=== PATIENT | male | born 1990 | race Caucasian/White ===

== ENCOUNTER 2018-12-05 18:57 | Day surgery (SDC) | payer OTHER ==
--- NOTE | 2018-12-05 19:50 | XRAY Report ---
Reason: swelling Procedure Date: 12/05/2018 Accession Number: [id number] / [id number] Procedure: XR - Finger(s) RT CPT Code: FULL RESULT: EXAM: RIGHT FIRST DIGIT RADIOGRAPHY EXAM DATE: 12/05/2018 07:32 PM. CLINICAL HISTORY: Swelling. COMPARISON: None. TECHNIQUE: 3 views. FINDINGS: Bones: Normal. No fracture or bone lesion. Joints: Normal. No subluxations. Soft Tissues: Mild soft tissue swelling. IMPRESSION: Soft tissue swelling. RADIA
[2018-12-05] MEDS ORDERED: ceFAZolin 2 GM/50 ML 2 GM/50 ML BAG IV STA (20:19)
[2018-12-05] MEDS ORDERED: cefTRIAXone 1 GM VIAL IVP STA (20:20)
[2018-12-05] MEDS ORDERED: VANCOMYCIN INJ 1 GM in SODIUM CHLORIDE 0.9% 500 ML IV STA (20:20)
[2018-12-05 20:48] LABS: BASOPHILS % (AUTO) 0.4 %; EOSINOPHILS # (AUTO) 0.5 10^3/uL (0.0-0.7); EOSINOPHILS % (AUTO) 4.6 %; HGB - HEMOGLOBIN 15.3 g/dL (14.0-18.0); LYMPHOCYTES # (AUTO) 2.8 10^3/uL (1.5-3.5); LYMPHOCYTES % (AUTO) 25.7 %; MEAN CORPUSCULAR HEMOGLOBIN 29.3 pg (27.0-31.0); MEAN CORPUSCULAR VOLUME 83.6 fL (80.0-94.0); MEAN PLATELET VOLUME 7.4 fL (7.4-11.4); MONOCYTES # (AUTO) 0.7 10^3/uL (0.0-1.0); MONOCYTES % (AUTO) 6.6 %; NEUTROPHILS # (AUTO) 6.8 10^3/uL (1.5-6.6); NEUTROPHILS % (AUTO) 62.7 %; PLT - PLATELET COUNT 255 10^3/uL (130-450); RED BLOOD COUNT 5.23 10^6/uL (4.70-6.10); RED CELL DISTRIBUTION WIDTH 13.6 % (12.0-15.0); WHITE BLOOD COUNT 10.8 x10^3/uL (4.8-10.8)
[2018-12-05 20:53] LABS: CALCIUM 9.2 mg/dL (8.5-10.3); CREATININE 0.9 mg/dL (0.6-1.2)
--- NOTE | 2018-12-05 20:59 | ED Physician Documentation ---
History of Present Illness - Stated complaint Stated Complaint: R THUMB INJURY - Chief complaint Chief Complaint: Wound - History obtained from History obtained from: Patient - History of Present Illness Timing: How many days ago (several) Pain level max: 5 Pain level now: 5 Improved by: nothing Worsened by: palpation - Additonal information Additional information: R thumb swelling. no injury noted. Td UTD. Works as a electrician aircraft. Does not recall any specific injury. Review of Systems Constitutional: denies: Fever, Chills Ears: denies: Ear pain Nose: denies: Rhinorrhea / runny nose Throat: denies: Sore throat GI: denies: Vomiting Skin: denies: Rash Musculoskeletal: denies: Neck pain, Back pain PD PAST MEDICAL HISTORY - Past Medical History Past Medical History: Yes Psych: Anxiety Musculoskeletal: Other - Past Surgical History Past Surgical History: Yes General: Other - Present Medications Home Medications: Ambulatory Orders Medication Instructions Recorded Confirmed No Known Home Medications 05/12/16 05/12/16 - Allergies Allergies/Adverse Reactions: Allergies Allergy/AdvReac Type Severity Reaction Status Date / Time No Known Drug Allergies Allergy Verified 12/05/18 19:05 - Social History Does the pt smoke?: Yes Smoking Status: Current every day smoker Does the pt drink ETOH?: No Does the pt have substance abuse?: No - Immunizations Immunizations are current?: Yes PD ED PE NORMAL - Vitals Vital signs reviewed: Yes - General General: Alert and oriented X 3, No acute distress - Derm Derm: Warm and dry - Extremities Extremities: Other (Right hand - Pad of the right thumb is erythematous, swollen, fluctuant. All of this is distal to the IP joint. No deep space tenderness over the palm of the hand. Neurovascular intact) - Neuro Neuro: Alert and oriented X 3 Results - Vitals Vitals: Vital Signs - 24 hr 12/05/18 12/05/18 19:01 21:24 Temperature 37.8 C H Heart Rate 90 89 Respiratory 17 18 Rate Blood Pressure 161/88 H 149/96 H O2 Saturation 97 100 Oxygen O2 Source Room air - Labs Labs: Laboratory Tests 12/05/18 12/05/18 20:35 20:35 WBC 10.8 RBC 5.23 Hgb 15.3 Hct 43.7 MCV 83.6 MCH 29.3 MCHC 35.0 RDW 13.6 Plt Count 255 MPV 7.4 Neut # (Auto) 6.8 H Lymph # (Auto) 2.8 [place] # (Auto) 0.7 Eos # (Auto) 0.5 Baso # (Auto) 0.0 Absolute Nucleated RBC 0.00 Nucleated RBC % 0.0 Sodium 139 Potassium 3.4 L Chloride 101 Carbon Dioxide 27 Anion Gap 11.0 BUN 11 Creatinine 0.9 Estimated GFR (MDRD) 101 Glucose 108 H Calcium 9.2 - Rads (name of study) Right thumb x-ray Radiology: Prelim report reviewed, EMP read contemporaneously, See rad report (Soft tissue swelling without foreign body) PD MEDICAL DECISION MAKING - ED course Complexity details: reviewed results, re-evaluated patient, considered differential, d/w patient ED course: 28-year-old male with a right thumb felon. I consulted Dr. Ennis, orthopedics will take the patient to the operating room for drainage. Patient was given IV Vanco and Rocephin. Tetanus is up-to-date This document was made in part using voice recognition software. While efforts are made to proofread this document, sound alike and grammatical errors may occur.. Departure - Departure Disposition: ED Transfer to [facility] Clinical Impression: Felon of finger of right hand Condition: Good Discharge Date/Time: 12/05/18 21:52
--- NOTE | 2018-12-05 21:17 | CONSULTATION NOTE ---
Referring Provider Name of Referring Provider:: Jose Guan MD Consult Date: 12/05/18 Chief Complaint - Chief Complaint Chief Complaint: Right thumb felon History of Present Illness - History Obtained From History obtained from: Patient, Dr. Guan - History of Present Illness HPI Comment/Other: Drake is a 28-year-old [id number] male in his usual state of health until about 3 days ago when he started to notice a soreness on his right thumb. He was not too concerned as he had not injured it but it gradually got worse. It is become swollen and red over the last day or 2. He presented to the emergency room this evening. Patient was seen by emergency room physician and diagnosed with right thumb felon. Orthopedic consultation was sought. Patient denies history of diabetes any immunocompromise or other systemic issues. He denies significant medical history. Denies injury or known cause of his right thumb problem. 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 History - Past Medical History Psych: reports: None Musculoskeletal: reports: Other MRSA Hx?: No Other Past Medical History: Patient denies significant past medical history and says he only takes occasional xtzc-vgv-yndczcc allergy medications. - Past Surgical History General: reports: Other - POLST POLST Status: Full Code Meds/Allgy - Home Medications Home Medications: Ambulatory Orders Medication Instructions Recorded Confirmed No Known Home Medications 05/12/16 05/12/16 - Allergies Allergies/Adverse Reactions: Allergies Allergy/AdvReac Type Severity Reaction Status Date / Time No Known Drug Allergies Allergy Verified 12/05/18 19:05 Exam - Vital Signs Vital Signs: Vital Signs x48h Temp Pulse Resp BP Pulse Ox 12/05/18 19:01 37.8 C H 90 17 161/88 H 97 - Physical Exam Comments/Other: Is a well-developed well-nourished 28-year-old gentleman in no acute distress. He is cooperative with exam. Head and neck normocephalic atraumatic. Breath sounds are clear. Patient's right upper extremity has palpable radial and ulnar pulses. Skin is grossly intact about the hand and wrist aside from some superficial abrasions on the volar aspect of the distal phalanx of the thumb. There is a significant prominence of the thumb distal phalanx pulp with erythema and fluctuance. The erythema does not significantly extend proximal to the IP joint. He is able to flex and extend his thumb with comfort. Trace amount of erythema towards the dorsal aspect of his thumb.Remain needing first ray and lesser digits generally unremarkable carpal and distal forearm area is unremarkable. Conclusion/Plan - Diagnosis Diagnosis: Right thumb felon involving distal phalanx volar aspect - Plan Plan: Discussed injury with Jt. Talked about the natural history and relevant literature of this and the options operative and nonoperative. We talked about potential risks of his injury as well as the potential risks of surgery including but not limited to an extension of the infection, worsening of his condition, wound problems nerve or blood vessel injury numbness weakness decreased function. worsening of his condition in any manner iatrogenic injury bleeding blood loss anesthesia risks including but not limited to major cardiovascular neurovascular complications even . We talked about the potential extension of his injury and the potential for permanent injury to the thumb and adjacent hand areas as well as the potential need for additional procedures and potential referral to hand specialist. His questions were answered he verbalized understanding above verbalized wish to proceed with operative treatment. Informed consent was given. We will plan on right thumb debridement irrigation emergently. He will notify us prior should have additional questions or concerns. Patient has already received vancomycin and Rocephin IV in the emergency room. We discussed postoperative plan pending intraoperative findings to include overnight observation overnight IV antibiotics and likely discharge tomorrow on oral antibiotics. - Lab Results Fish Bones: 12/05/18 20:35 12/05/18 20:35
[2018-12-05] MEDS ORDERED: diphenhydrAMINE INJ 50 MG/ML VIAL IVP STA (21:18)
--- NOTE | 2018-12-05 21:31 | ANESTHESIA ---
Pre-Anesthesia VS, & Labs - Diagnosis Diagnosis Right thumb felon involving distal phalanx volar aspect - Procedure I and D right thumb Vital Signs: Temp Pulse Resp BP Pulse Ox 37.8 C H 89 18 149/96 H 100 12/05/18 19:01 12/05/18 21:24 12/05/18 21:24 12/05/18 21:24 12/05/18 21:24 Height 5 ft 11 in Weight (kg) 92.986 kg Body Mass Index 28.5 - NPO Other (6 hours) - Lab Results Current Lab Results: Laboratory Tests 12/05/18 20:35: Sodium 139, Potassium 3.4 L, Chloride 101, Carbon Dioxide 27, Anion Gap 11.0, BUN 11, Creatinine 0.9, Estimated GFR (MDRD) 101, Glucose 108 H, Calcium 9.2 12/05/18 20:35: WBC 10.8, RBC 5.23, Hgb 15.3, Hct 43.7, MCV 83.6, MCH 29.3, MCHC 35.0, RDW 13.6, Plt Count 255, MPV 7.4, Neut # (Auto) 6.8 H, Lymph # (Auto) 2.8, Delta # (Auto) 0.7, Eos # (Auto) 0.5, Baso # (Auto) 0.0, Absolute Nucleated RBC 0.00, Nucleated RBC % 0.0 Fish Bones: 12/05/18 20:35 12/05/18 20:35 Home Medications and Allergies Active Medications Vancomycin HCl 1 gm/ Sodium (Chloride) 500 mls @ 250 mls/hr IV ONCE STA Stop: 12/05/18 22:19 Last Admin: 12/05/18 20:45 Dose: 250 mls/hr No Known Home Medications 05/12/16 Allergies/Adverse Reactions: Allergies Allergy/AdvReac Type Severity Reaction Status Date / Time No Known Drug Allergies Allergy Verified 12/05/18 19:05 Anes History & Medical History - Anesthetic History Anesthesia Complications: reports: No previous complications Family history of Anesthesia Complications: Denies Family history of Malignant Hyperthermia: Denies - Medical History Cardiovascular: reports: None Pulmonary: reports: None Gastrointestinal: reports: None Urinary: reports: None Neuro: reports: Head injury Musculoskeletal: reports: Other Endocrine/Autoimmune: reports: None Blood Disorders: reports: None Skin: reports: None Smoking Status: Current every day smoker Psychosocial: reports: No issues indicated Other Past Medical History: Patient denies significant past medical history and says he only takes occasional iyhp-dcy-eycgmnn allergy medications. - Surgical History General: Other Eyes Ears Nose Throat (EENT): Rhinoplasty Exam General: Alert, Oriented x3, Cooperative Dental: WNL Mouth Opening: Greater than 4 Fingerbreadths Neck Mobility: Normal Mallampati classification: I Thyromental Distance: greater than 6 cm Respiratory: Lungs clear Cardiovascular: Regular rate Mental/Cognitive Status: Alert/Oriented X3 Cognitive Status: Within normal limits Plan Anesthesia Type: Total IV Consent for Procedure(s) Verified and Reviewed: Yes Code Status: Attempt Resuscitation ASA classification: 2-Mild systemic disease Is this case an emergency?: Yes
[2018-12-05] MEDS ORDERED: LACTATED RINGERS 1,000 ML IV ONE (21:50)
[2018-12-05] MEDS ORDERED: MIDAZOLAM 2 MG/2 ML VIAL IVP ONE (22:00)
[2018-12-05] MEDS ORDERED: LIDOCAINE-MPF 2% 5 ML VIAL IM ONE (22:00)
[2018-12-05] MEDS ORDERED: ONDANSETRON 4 MG/2 ML VIAL IVP ONE (22:00)
[2018-12-05] MEDS ORDERED: DEXAMETHASONE 4 MG/ML VIAL IVP ONE (22:00)
[2018-12-05] MEDS ORDERED: PROPOFOL 200 MG/20 ML VIAL IVP ONE (22:00)
[2018-12-05] MEDS ORDERED: fentaNYL 100 MCG/2 ML VIAL IVP ONE (22:00)
[2018-12-05] MEDS ORDERED: KETAMINE 500 MG/10 ML VIAL IVP ONE (22:00)
[2018-12-05] MEDS ORDERED: KETOROLAC 30 MG/ML VIAL IVP ONE (22:00)
[2018-12-05] MEDS ORDERED: BUPIVACAINE 0.5% PF 30 ML VIAL ONE (22:08)
[2018-12-05] MEDS ORDERED: BUPIVACAINE 0.5% PF 30 ML VIAL INFIL ONE (22:36)
--- NOTE | 2018-12-05 22:52 | IMMEDIATE POSTOPERATIVE NOTE ---
Immediate Postoperative Note - Procedure Note Procedure Date: 12/05/18 Pre-Op Diagnosis: Right thumb felon Procedure: Right thumb debridement irrigation Post-Op Diagnosis: Same Primary Surgeon: Katya Ennis MD Marketing Analytics Manager: BETO Anesthesia Type: General LMA, Local Findings: Right thumb felon, purulence associated with prominent area of fluctuance Complications: No complications Estimated Blood Loss (in cc): 5 Specimens and Cultures: 2 cultures sent aerobic anaerobic Plan of Care: Observation overnight with perioperative antibiotics, wick removal in a.m., if progressing well likely discharge after next dose of antibiotics. Plan for discharge on oral antibiotics. Close orthopedic follow-up.
[2018-12-05] MEDS ORDERED: ONDANSETRON 4 MG/2 ML VIAL IVP PRN (22:54)
[2018-12-05] MEDS ORDERED: oxyCODONE 5 MG TABLET PO PRN (22:54)
[2018-12-06] MEDS: ACETAMINOPHEN 325 MG TABLET PO SCH ×2 (00:10→05:54)
[2018-12-06 07:38] VITALS: BP 121/56
[2018-12-06] MEDS ORDERED: VANCOMYCIN INJ 1 GM in SODIUM CHLORIDE 0.9% 250 ML IV SCH (09:00)
--- NOTE | 2018-12-06 09:48 | PROVIDER PROGRESS NOTE ---
Subjective - Prog Note Date Prog Note Date: 12/06/18 - Subjective Pt reports feeling: Improved (Patient denies pain says he is comfortable denies other setbacks or new concerns this morning) Objective - Vital Signs/Intake & Output Vital Signs: Vital Signs x48h Temp Pulse Resp BP Pulse Ox 12/06/18 07:37 36.5 C 67 17 121/56 L 97 12/06/18 05:10 36.8 C 64 16 123/54 L 96 12/06/18 04:09 36.7 C 68 16 115/55 L 97 12/06/18 03:10 36.8 C 64 16 119/58 L 95 12/06/18 02:10 36.9 C 67 16 127/57 L 94 Intake & Output: Intake & Output 12/03/18 12/04/18 12/05/18 12/06/18 23:59 23:59 23:59 23:59 Intake Total 500 Balance 500 - Lab Results Fish Bones: 12/05/18 20:35 12/05/18 20:35 Other Labs: Lab Results x24hrs 12/05/18 12/05/18 Range/Units 20:35 20:35 WBC 10.8 (4.8-10.8) x10^3/uL RBC 5.23 (4.70-6.10) 10^6/uL Hgb 15.3 (14.0-18.0) g/dL Hct 43.7 (42.0-52.0) % MCV 83.6 (80.0-94.0) fL MCH 29.3 (27.0-31.0) pg MCHC 35.0 (32.0-36.0) g/dL RDW 13.6 (12.0-15.0) % Plt Count 255 (130-450) 10^3/uL MPV 7.4 (7.4-11.4) fL Neut # (Auto) 6.8 H (1.5-6.6) 10^3/uL Lymph # (Auto) 2.8 (1.5-3.5) 10^3/uL [place]in # (Auto) 0.7 (0.0-1.0) 10^3/uL Eos # (Auto) 0.5 (0.0-0.7) 10^3/uL Baso # (Auto) 0.0 (0.0-0.1) 10^3/uL Absolute Nucleated RBC 0.00 x10^3/uL Nucleated RBC % 0.0 /100WBC Sodium 139 (135-145) mmol/L Potassium 3.4 L (3.5-5.0) mmol/L Chloride 101 (101-111) mmol/L Carbon Dioxide 27 (21-32) mmol/L Anion Gap 11.0 (6-13) BUN 11 (6-20) mg/dL Creatinine 0.9 (0.6-1.2) mg/dL Estimated GFR (MDRD) 101 (>89) Glucose 108 H (70-100) mg/dL Calcium 9.2 (8.5-10.3) mg/dL - Other Results/Comments Other Results/Comments: Right thumb is examined. There is dressing removed. The wick is removed. There is minimal sanguinous drainage. Decreased erythema noted in the distal p halanx. No fluctuance appreciated. IP joint moves easily. Cap refill less than 2 seconds distally in the thumb. Subjective numbness in area of digital block. Assessment/Plan - Problem List (1) Felon of finger of right hand Impression: Patient doing well postoperative day #1 status post right thumb felon debridemen t and irrigation. There appears to be some slight decreased in erythema. No significant purulent drainage noted. Wick was removed. preliminary culture negative. I recommend discharge to home after his morning dose of vancomycin wb dosed by pharmacy. Patient is redressed with dry dressing and Herman. He is given dressing care instructions which will be to leave this clean dry and intact. He will be sent home on Keflex 4 times daily as well as [place] prn for pain. He denies any contraindication to these medications will use them as directed. We will plan on seeing him in the office 12/09/2018. If however there are any worsening in the meantime he will call the office number he will notify us if there is problems questions or worsening condition. Patient denies any questions at this time and says he is comfortable and in agreement with the above plan.
--- NOTE | 2018-12-09 08:46 | OPERATIVE REPORT ---
DATE OF SERVICE: 12/05/2018 Physician: Tim Ennis MD PROCEDURE PERFORMED: Right thumb felon debridement and irrigation. PREOPERATIVE DIAGNOSIS: Right thumb felon distal phalanges volar pulp. POSTOPERATIVE DIAGNOSES: Right thumb felon distal phalanges volar pulp. INTRAOPERATIVE COMPLICATIONS: None noted. SURGEON: Tim Ennis MD [employer] ASSISTANT MANAGER: Not applicable. ANESTHESIA PROVIDER: Quinten Vega CRNA. ANESTHESIA: General LMA, as well as 10 mL of 0.5% Marcaine plain. SPECIMEN SENT: Aerobic and anaerobic cultures. COMPRESSION DEVICE: Bilateral calf SCD boots. PREOPERATIVE ANTIBIOTICS: Patient received vancomycin and Rocephin in the emergency room within an hour of procedure. HISTORY OF PRESENT ILLNESS AND INDICATIONS: Patient is a 28-year-old gentleman who had about 2-3 days of right thumb problems. It started with some soreness and ultimately got worse and swollen, as well as red and warm. He presented to the emergency room, was found to have a right thumb felon distal to the IP joint. There is minimal associated cellulitis. He is indicated for operative treatment. We discussed risks, benefits, and alternatives of operative and nonoperative treatment. We talked about potential operative risks including but not limited to worsening of infection or extension of infection, wound problems, nerve or blood vessel injury, numbness, tingling, weakness, pain, stiffness, decreased range of motion, chronic pain, worsening of his condition in any manner, iatrogenic injury, bleeding, tourniquet complications, anesthetic complications including but not limited to major cardiovascular or neurovascular complications, even . We talked about potential need for additional procedures and the potential need for transfer of care to a hand and wrist specialist should this fail to improve with the procedure. We talked about the potential implications for the short-term or long-term, for his usops-ftkf-wcjnxowd thumb. He verbalized understanding of the above, verbalized wish to proceed with operative treatment. Informed consent was given. PREOPERATIVE FINDINGS: There is noted to be a prominent swelling of the distal phalanx on the right thumb on the volar aspect. This is fluctuant, erythematous, and does not extend proximally to the IP joint of the thumb. There is a trace amount of surrounding erythema. Upon entering the radial border of the thumb, there is minimal purulence evacuated. This is cultured. There is also some serosanguineous drainage as well. PROCEDURE: On 12/05/2018, patient identified in the emergency room. His right thumb is identified as the operative site. This is ultimately signed in the preoperative waiting area. He had already received preoperative vancomycin and Rocephin. He is brought to the operating room. Initially attempt at sedation was performed, though patient was uncomfortable and, as such, general LMA was indicated and performed by Quinten Vega CRNA. Patient is supine on the operating table; head, neck, and extremities placed in comfortable positions. SCD boots are in place. Patient's right upper extremity has a forearm weight-based tourniquet placed, which is not used during the case. This is well-padded nonetheless. Patient's right hand all the way up to the forearm tourniquet is pre-scrubbed with Hibiclens solution and then prepped and draped in the usual sterile fashion. At this time, surgical pause identifies the right thumb as the operative site. At this point, a radial-based midlateral approach is used to approach the thumb between the neurovascular bundles. Skin incision is made, and then spreading dissection with a combination of tenotomy and other scissors is used to break up the septations. Care is taken to avoid violating the flexor tendon though dissection is done adjacent to volar distal phalanx, and care is also taken to avoid the interphalangeal joint to prevent extension. After confidence that the septae are broken up, cultures were sent and the purulence is drained, copious irrigation is performed. At this point after copious irrigation, the incision is closed with nylon suture, though with a gauze packing wick, to be removed later, in the middle portion of the incision. It was ensured to be free of encumbrance by sutures. It should be noted that care is taken to avoid neurovascular injury while ensuring that the septae are appropriately opened. At this point, dressing is placed, which is a Xeroform dressing, dry sterile 4 x 4 and then Herman wrap is applied. Patient tolerated the procedure well. Instrument and sponge counts are correct. Patient is ultimately transferred to the recovery room in stable condition. PLAN: Patient will be on perioperative antibiotics, presumptive until culture results return. He will receive another dose of vancomycin at the appropriate interval. He would have a dressing change and wick removal in the morning. Pending appearance of his thumb and continued stability and comfort, will likely be discharged on oral antibiotics. Patient's fiance, Agnieszka, is met in the waiting area. Case is discussed, as it had been preoperatively reviewed with her. Postoperative plans discussed. Her questions are answered, and she verbalizes understanding and satisfaction with the plan as outlined. TD: 12/09/2018 08:21 REYNALDO
== END 2018-12-06 09:45 | disposition home or self-care (01) ==
LOC: ED 18:57 → SDS 21:00 → OBS 23:52 → SDS 12-06 09:45
PROVIDERS: ATTEND Orthopaedic Surgery Sports Medicine
PROC: 0JBJ0ZZ Excision of Right Hand Subcutaneous Tissue and Fascia, Open Approach (ICD-10-PCS; principal; 2018-12-05 21:45)
DX: L03.011 Cellulitis of right finger (principal); F17.200 Nicotine dependence, unspecified, uncomplicated
CPT/HCPCS: 11043; 36415; 73140; 80048; 85025; 87070; 87205; 96365; 96375; 99283; 99284; A9270; J1200; J3370; J7120

== ENCOUNTER 2024-01-19 16:37 | Emergency (ER) | payer OTHER ==
--- NOTE | 2024-01-19 18:04 | ED Physician Documentation ---
History of Present Illness - Stated complaint Stated Complaint: R TOE INJ - Chief complaint Chief Complaint: Trauma Ext - History obtained from History obtained from: Patient - History of Present Illness Timing: Other (several months) Pain level max: 5 Pain level now: 5 - Additonal information Additional information: 33-year-old male presents to the emergency department with ingrown toenail on the right toe. He states this been ongoing for several years, he removes the portion of the toenail every few months but it seems to be getting worse and worse with each time. Now he has redness and swelling. No fevers. No chills. Has never seen a mud temperer. Review of Systems Constitutional: denies: Fever PD PAST MEDICAL HISTORY - Past Medical History Cardiovascular: None Respiratory: None Neuro: Head injury Endocrine/Autoimmune: None GI: None : None Psych: Anxiety Musculoskeletal: Other Derm: None - Past Surgical History Past Surgical History: Yes General: Other HEENT: Rhinoplasty - Present Medications Home Medications: Ambulatory Orders Medication Instructions Recorded Confirmed cephALEXin [Keflex] 500 mg PO Q6H #28 cap 01/19/24 - Allergies Allergies/Adverse Reactions: Allergies Allergy/AdvReac Type Severity Reaction Status Date / Time No Known Drug Allergies Allergy Verified 01/19/24 17:38 - Social History Does the pt smoke?: Yes Smoking Status: Current every day smoker Does the pt drink ETOH?: No Does the pt have substance abuse?: No - Immunizations Immunizations are current?: Yes - POLST POLST Status: Full Code PD ED PE NORMAL - Vitals Vital signs reviewed: Yes - General General: Alert and oriented X 3, No acute distress - Derm Derm: Warm and dry - Extremities Extremities: Other (R great toe - mild swelling and erythema to the medial nail fold. No drainage. No streaking.) - Neuro Neuro: Alert and oriented X 3 Results - Vitals Vitals: Vital Signs - 24 hr 01/19/24 01/19/24 16:56 18:23 Temperature 36.5 C 36.6 C Heart Rate 77 80 Respiratory 18 16 Rate Blood Pressure 151/88 H 142/96 H O2 Saturation 99 98 Oxygen O2 Source Room air PD Medical Decision Making - ED course Complexity details: considered differential, d/w patient ED course: Patient with an ingrown right toe nail, great toe. There is some infection present. He has attempted removal at home several times in the past and now has fairly significant tissue overgrowth. Due to this, recommended that he see a mud temperer to remove the nail and to terminate the nail matrix to prevent recurrence at that site. I did offer to remove the toenail here, but would still need podiatry follow-up. Patient elects oral antibiotics and follow-up with podiatry next week. Recommend soaking the toenail at home. Patient will return if he worsens. Patient counseled regarding signs and symptoms for which I believe and urgent re-evaluation would be necessary. Patient with good understanding of and agreement to plan and is comfortable going home at this time This document was made in part using voice recognition software. While efforts are made to proofread this document, sound alike and grammatical errors may occur. Departure - Departure Disposition: 01 Home, Self Care Clinical Impression: Ingrown toenail of right foot Condition: Good Instructions: ED Toenail Ingrown Infec Abx Onl Follow-Up: Filiberto Green DPM [Physician No Access] - Within 1 week Prescriptions: cephALEXin [Keflex] 500 mg PO Q6H #28 cap Comments: Please contact podiatry for full removal of the toenail. Will start you on ant ibiotics to decrease the inflammation and infection prior to this. Your prescription was sent to [facility] in [place]. I would recommend warm water soaks 2-3 times daily as well. You can add Epsom salt to this. Please return if you worsen. Forms: PCP List Discharge Date/Time: 01/19/24 18:24
[2024-01-19] MEDS: cephALEXin 250 MG CAPSULE PO STA (18:18)
[2024-01-19 18:25] VITALS: BP 142/96; O2SAT 98
== END 2024-01-19 18:24 | disposition home or self-care (01) ==
LOC: ED 16:37
DX: L60.0 Ingrowing nail (principal); L03.031 Cellulitis of right toe; F17.200 Nicotine dependence, unspecified, uncomplicated
CPT/HCPCS: 99283; A9270